=== PATIENT | female | born 1990 | race Caucasian/White ===

== ENCOUNTER 2018-12-29 01:00 | Emergency (ER) | payer BC ==
--- NOTE | 2018-12-29 01:04 | EDM.PDOC ---
ED HPI GENERAL MEDICAL PROBLEM - General Stated Complaint: UTI, KIDNEY PAIN Time Seen by Provider: 12/29/18 01:20 - History of Present Illness INITIAL COMMENTS - FREE TEXT/NARRATIVE: HISTORY AND PHYSICAL: History of present illness: The patient is a 28-year-old female with a history of a bilateral tubal ligation who presents with urinary complaints. The patient says that the story starts about 2 weeks ago when she was concerned about urinary symptoms including urgency and dysuria as well as frequency and she did a conference computer call with a physician who diagnosed her with a UTI and she was started on antibiotics for 5 days. She said the symptoms seemed to improve for a day or so and then returned so she saw Michelle the nurse practitioner at [facility] and Michelle did swabs and a pelvic exam and diagnosed her with bacterial vaginosis. She was then started on Flagyl and was taking that when her urinary symptoms seemed to worsen so Michelle gave her 3 more days of Bactrim. She also had a pelvic ultrasound last week that she was told was normal. She saw Michelle in the clinic yesterday and had her well woman check and nothing was found on pelvic exam and she did discuss these continued symptoms with Michelle and she was given Pyridium. She took 2 doses of Pyridium and she feels like the discomfort is worsening. She has a history of the tubal ligation but no history of any other gynecologic problems or problems. She says that she is having pain on the right lower back but it is not flank pain where she shows me the pain is. She has no fevers chills nausea vomiting but had one episode of diarrhea yesterday. She is eating and drinking normally and she is concerned because the symptoms have been ongoing more or less for the last 2 weeks and none can seem to figure out what's happening. She said that no lab work was done by Michelle and she is worried about that. She has no midline back pain no neurosensory changes or weakness in her legs and no upper abdominal pain or anterior abdominal pain but says that she feels full in the suprapubic area and there is discomfort and pressure there. She says that when she goes to the bathroom or feels the urge to go to the bathroom there is a lot of pressure. The patient does report to me that when she was initially diagnosed with a UTI and placed on the Bactrim it was by telemetry medicine and a urine was not collected nor was a urine culture collected. Since that time she was just retreated by the nurse practitioner and it does not sound as if the urine culture was collected. She does have a history of UTIs in the past and says that normally when she starts antibiotics it improves Review of systems: As per history of present illness and below otherwise all systems reviewed and negative. Past medical history: As per history of present illness and as reviewed below otherwise noncontributory. Surgical history: As per history of present illness and as reviewed below otherwise noncontributory. Social history: No reported history of drug or alcohol abuse. Family history: As per history of present illness and as reviewed below otherwise noncontributory. Physical exam: General: Well-developed well-nourished female who is nontoxic and vital signs are noted by me HEENT: Atraumatic, normocephalic, negative for conjunctival pallor or scleral icterus, mucous membranes moist, throat clear, neck supple, nontender, trachea midline. Lungs: Clear to auscultation, breath sounds equal bilaterally, chest nontender. Heart: S1S2, regular rate and rhythm no overt murmurs Abdomen: Soft, nondistended, nontender. Negative for masses or hepatosplenomegaly. Negative for costovertebral tenderness. Pelvis: Stable nontender. Genitourinary: Deferred. Rectal: Deferred. Extremities: Atraumatic, negative for cords or calf pain. Neurovascular unremarkable. Neuro: Awake, alert, oriented. Cranial nerves II through XII unremarkable. Cerebellum unremarkable. Motor and sensory unremarkable throughout. Exam nonfocal. Diagnostics: UA with micro-, CBC CMP urine culture, CT scan Therapeutics: Toradol IM I discussed with the patient that she needs to be re-seen in the clinic by Michelle the nurse practitioner as she is the one that has been coordinating this workup over the last week and a half. As her symptoms of an ongoing for 2 weeks and she has had multiple interventions it will make it more challenging. I told her that I would do the most workup that I'm capable of and that she will need to be re-seen by her provider if I do not find any positive test. I discussed with the patient all testing results including the urinalysis which does reveal a still present small urinary tract infection and that we will proceed to send a urine culture and treated with Cipro. She is also aware of the CT scan findings, which in light of her presenting complaints and duration of symptoms was surprising to yield a 2 mm right distal ureteral stone. The vascular engorgement of the abdominal wall muscles had been seen on her prior imaging and the patient was aware of this. We have given her urine strainers as well as [facility] for Flomax ciprofloxacin and tramadol, and she does not want anything very strong for pain. I've advised her to contact [facility] in the morning as [facility] may have a visiting urologist for her to follow-up with but they have also given her information on our urologist Dr. Demarco. She states understanding and is comfortable with discharge home Impression: Persistent urinary symptoms and lower pelvic pain, workup in progress stable; recurrent early UTI and new 2 mm distal right ureteral stone Definitive disposition and diagnosis as appropriate pending reevaluation and review of above. 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 Social & Family History - Family History Family Medical History: Noncontributory ED ROS GENERAL - Review of Systems Review Of Systems: ROS reveals no pertinent complaints other than HPI. ED EXAM, GENERAL - Physical Exam Exam: See Below (see dictation) Course - Vital Signs Last Recorded V/S: Last Vital Signs Temp 36.4 C 12/29/18 01:10 Pulse 63 12/29/18 01:10 Resp 18 12/29/18 01:10 BP 123/82 12/29/18 01:10 Pulse Ox 95 12/29/18 01:10 - Orders/Labs/Meds Orders: Active Orders 24 hr Category Date Time Status Abdomen Pelvis wo Cont [CT] Stat Exams 12/29/18 01:53 Taken CULTURE URINE [RM] Stat Lab 12/29/18 01:20 Received Labs: Laboratory Tests 12/29/18 12/29/18 12/29/18 Range/Units 01:20 01:33 01:33 WBC 5.92 (4.0-11.0) K/uL RBC 4.59 (4.30-5.90) M/uL Hgb 14.5 (12.0-16.0) g/dL Hct 43.9 (36.0-46.0) % MCV 95.6 (80.0-98.0) fL MCH 31.6 (27.0-32.0) pg MCHC 33.0 (31.0-37.0) g/dL RDW Std Deviation 41.2 (28.0-62.0) fl RDW Coeff of Eddie 12 (11.0-15.0) % Plt Count 169 (150-400) K/uL MPV 9.70 (7.40-12.00) fL Neut % (Auto) 47.0 L (48.0-80.0) % Lymph % (Auto) 41.4 H (16.0-40.0) % [place] % (Auto) 9.5 (0.0-15.0) % Eos % (Auto) 1.9 (0.0-7.0) % Baso % (Auto) 0.2 (0.0-1.5) % Neut # (Auto) 2.8 (1.4-5.7) K/uL Lymph # (Auto) 2.5 H (0.6-2.4) K/uL [place] # (Auto) 0.6 (0.0-0.8) K/uL Eos # (Auto) 0.1 (0.0-0.7) K/uL Baso # (Auto) 0.0 (0.0-0.1) K/uL Nucleated RBC % 0.0 /100WBC Nucleated RBCs # 0 K/uL Sodium 141 (136-145) mmol/L Potassium 3.5 (3.5-5.1) mmol/L Chloride 103 (98-107) mmol/L Carbon Dioxide 28.5 (21.0-32.0) mmol/L BUN 18 (7.0-18.0) mg/dL Creatinine 0.9 (0.6-1.0) mg/dL Est Cr Clr Drug Dosing TNP Estimated GFR (MDRD) > 60.0 ml/min Glucose 92 (74-106) mg/dL Calcium 8.6 (8.5-10.1) mg/dL Total Bilirubin 0.3 (0.2-1.0) mg/dL AST 16 (15-37) IU/L ALT 16 (14-63) IU/L Alkaline Phosphatase 43 L (46-116) U/L Total Protein 7.0 (6.4-8.2) g/dL Albumin 4.1 (3.4-5.0) g/dL Globulin 2.9 (2.6-4.0) g/dL Albumin/Globulin Ratio 1.4 (0.9-1.6) Urine Color ORANGE Urine Appearance SLT CLOUDY Urine pH 5.0 (5.0-8.0) Ur Specific [place] 1.020 (1.001-1.035) Urine Protein 100 H (NEGATIVE) mg/dL Urine Glucose (UA) 100 H (NEGATIVE) mg/dL Urine Ketones TRACE H (NEGATIVE) mg/dL Urine Occult Blood TRACE-INTACT H (NEGATIVE) Urine Nitrite POSITIVE H (NEGATIVE) Urine Bilirubin MODERATE H (NEGATIVE) Urine Ictotest POSITIVE Urine Urobilinogen >=8.0 H (<2.0) EU/dL Ur Leukocyte Esterase NEGATIVE (NEGATIVE) Urine RBC 3-4 (0-2/HPF) Urine WBC 1-3 (0-5/HPF) Ur Epithelial Cells OCCASIONAL (NONE-FEW) Calcium Oxalate Crystal MANY (NEGATIVE) Urine Bacteria FEW (NEGATIVE) Urine Mucus LIGHT (NONE-MOD) Meds: Medications Discontinued Medications Generic Name Dose Route Start Last Admin Trade Name Waldo PRN Reason Stop Dose Admin Ketorolac Tromethamine 60 mg 12/29/18 01:29 12/29/18 01:47 Toradol IM 12/29/18 01:30 60 mg ONETIME ONE Administration Departure - Departure Time of Disposition: 03:00 Disposition: Home, Self-Care 01 Condition: Good Clinical Impression: UTI, Urinary tract infectious disease, Ureterolithiasis - Discharge Information Instructions: Kidney Stones, [id number] Referrals: Mine Fabian [employer] [id number] [Primary Care Provider] - Forms: ED Department Discharge Additional Instructions: The following information is given to patients seen in the emergency department who are being discharged to home. This information is to outline your options for follow-up care. We provide all patients seen in our emergency department with a follow-up referral. The need for follow-up, as well as the timing and circumstances, are variable depending upon the specifics of your emergency department visit. If you don't have a primary care physician on staff, we will provide you with a referral. We always advise you to contact your personal physician following an emergency department visit to inform them of the circumstance of the visit and for follow-up with them and/or the need for any referrals to a consulting specialist. The emergency department will also refer you to a specialist when appropriate. This referral assures that you have the opportunity for followup care with a specialist. All of these measure are taken in an effort to provide you with optimal care, which includes your followup. Under all circumstances we always encourage you to contact your private physician who remains a resource for coordinating your care. When calling for followup care, please make the office aware that this follow-up is from your recent emergency room visit. If for any reason you are refused follow-up, please contact the [facility] emergency department at and ask to speak to the emergency department charge nurse. [address] [address] [facility] [address] [place] [address] Push hydration and take medications as prescribed from [facility], ciprofloxacin Flomax and tramadol as directed. Please start the Cipro and the Flomax this evening. Strain all urine using strainers you have been given. Please contact your provider at [facility] and arrange urology follow-up or contact Dr. Demarco our urologist using the resources given to above. Return to ER as needed and as discussed - My Orders Last 24 Hours: My Active Orders 12/29/18 01:20 CULTURE URINE [RM] Stat 12/29/18 01:53 Abdomen Pelvis wo Cont [CT] Stat - Assessment/Plan Last 24 Hours: My Active Orders 12/29/18 01:20 CULTURE URINE [RM] Stat 12/29/18 01:53 Abdomen Pelvis wo Cont [CT] Stat
[2018-12-29 01:16] VITALS: BP 123/82
[2018-12-29] MEDS ORDERED: Ketorolac 60 MG/2 ML SDV IM ONE (01:29)
[2018-12-29 01:57] LABS: CHLORIDE,CL 103 mmol/L (98-107); SODIUM,NA 141 mmol/L (136-145)
--- NOTE | 2018-12-30 16:53 | CT ---
EXAM DATE: 12/29/18 PATIENT'S AGE: 28 Patient: TOREY PATINO Facility: [facility] Site Site : 1990 Study: CT-Abdomen/Pelvis [id number]/[id number] 2:31:42 AM Ordering Physician: DURAN JONES Final Report: INDICATION: Right flank pain, urinary tract infection, dysuria. TECHNIQUE: CT abdomen and pelvis without contrast. COMPARISON: None. FINDINGS: Lower chest: Unremarkable. Liver: Normal in size and attenuation. No masses. Gallbladder and bile ducts: No stones or inflammation. No biliary dilatation. Pancreas: Unremarkable. No mass or inflammation. Spleen: Normal in size. No masses. Adrenal glands: Normal in size. No nodules. Kidneys: The right kidney is normal in contour with mild right hydronephrosis and a right ureterovesicular junction stone measuring 2 millimeters. Left kidney is normal in contour without hydronephrosis. GI tract: No dilated loops of large or small intestine. No focal inflammation. Vasculature: No abdominal aortic aneurysm. Small varices within the anterior subcutaneous tissues of the pelvis. Diminutive caliber or absent right external iliac vein. Dilated right internal iliac vein. Lymph nodes: No lymphadenopathy. Abdominal wall/Omentum/Peritoneum: Fat stranding and air within subcutaneous tissues along the right flank, likely secondary to recent injection. Pelvis: Status post bilateral fallopian tube occlusion. Bones: Unremarkable for age. IMPRESSION: 1. Nephrolithiasis with mild right hydronephrosis and obstructing right ureterovesicular junction stone measuring 2 millimeters. 2. Incidental note made of a diminutive or absent right external iliac vein with prominent anterior subcutaneous varices at the pelvis as well as a dilated right internal iliac vein. 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 Please note that all CT scans at this facility use dose modulation, iterative reconstruction, and/or weight-based dosing when appropriate to reduce radiation dose to as low as reasonably achievable. Dictated by Roosevelt Jordan MD @ Dec 29 2018 2:35AM Signed by: Roosevelt Jordan MD @12/29/2018 2:42:40 AM (Electronic Signature) Report Signed by Proxy. [facility]
== END 2018-12-29 03:00 | disposition home or self-care (01) ==
LOC: MW.ED 01:00
DX: N13.2 Hydronephrosis with renal and ureteral calculous obstruction (principal); N39.0 Urinary tract infection, site not specified; F41.9 Anxiety disorder, unspecified; F32.9 Major depressive disorder, single episode, unspecified; Z91.011 Allergy to milk products; Z79.899 Other long term (current) drug therapy
CPT/HCPCS: 36415; 74176; 80053; 81001; 85025; 87086; 96372; 99284; J1885